=== PATIENT | female | born 2000 | race Caucasian/White ===

== ENCOUNTER 2022-08-06 12:39 | Emergency (ER) | payer OTHER ==
[~2022-08-06] VITALS: Ht 170.2 cm; Wt 70.8 kg
[2022-08-06 13:12] VITALS: BP 155/96
[2022-08-06] MEDS ORDERED: ACET-10509 PO (14:51)
[2022-08-06] MEDS ORDERED: ONDA-188 PO (14:51)
--- NOTE | 2022-08-06 15:07 | NUR ---
Patient discharged with v/s stable. Written and verbal after care instructions ABOUT HEAD INJURY given and explained. Patient alert, oriented and verbalized understanding of instructions. Ambulatory with steady gait. All questions addressed prior to discharge. ID band removed. Patient advised to follow up with PMD. Rx of TYLENOL EXTRA STRENGTH, given. Patient educated on indication of medication including possible reaction and side effects. Opportunity to ask questions provided and answered.
== END 2022-08-06 15:07 | disposition home or self-care (01) ==
LOC: MED 12:39
DX: S09.90XA Unspecified injury of head, initial encounter (principal); H53.149 Visual discomfort, unspecified; Z79.899 Other long term (current) drug therapy; W22.8XXA Striking against or struck by other objects, initial encounter; Y93.89 Activity, other specified; Y92.89 Other specified places as the place of occurrence of the external cause; Y99.8 Other external cause status
CPT/HCPCS: 99282